=== PATIENT | female | born 1945 | race Caucasian/White ===

== ENCOUNTER 2018-05-01 05:26 | Inpatient (IN) | payer OTHER ==
[2018-04-24 13:19] LABS: HEMATOCRIT 38.1 % (37.0-47.0); HEMOGLOBIN 13.2 gm/dL (12.0-15.0); MCH 32.9 pg (26.0-34.0); MCHC 34.7 g/dL (28.0-37.0); MCV 94.8 fL (80.0-100.0); RBC 4.02 mil/uL (4.20-5.00); RDW 12.5 % (10.5-14.5); WBC 6.2 thou/uL (4.0-11.0)
[2018-04-24 13:20] LABS: URINE BILIRUBIN NEGATIVE (Negative); URINE BLOOD NEGATIVE (Negative); URINE CLARITY CLEAR; URINE COLOR YELLOW; URINE GLUCOSE-RANDOM* NEGATIVE (Negative); URINE KETONES NEGATIVE (Negative); URINE LEUKOCYTES-REFLEX NEGATIVE (Negative); URINE NITRITE-REFLEX NEGATIVE (Negative); URINE PROTEIN (DIPSTICK) NEGATIVE (Negative); URINE UROBILINOGEN 0.2 E.U./dl (0.2-1.0)
[2018-04-24 13:33] LABS: PROTIME 10.3 Seconds (9.3-11.4)
[2018-04-24 13:36] LABS: CALCIUM 9.3 mg/dL (8.5-10.1); CREATININE 1.1 mg/dL (0.6-1.0); POTASSIUM 4.3 mmol/L (3.5-5.1)
[~2018-05-01] VITALS: Ht 165.1 cm; Wt 72.6 kg
--- NOTE | ~2018-05-01 | O ---
[facility] [place] [address] OPERATIVE REPORT Name: MARGARITO OKEEFE Room #: 459-P [facility] IN M.R.#: [id number] Admission: 05/01/18 Attend Phys: Claude Epstein Discharge: 05/02/18 Date of : 47 Report #: [id number] THIS REPORT FOR: //name// CC: Claude Mcdonough DATE OF SERVICE: 05/01/2018 PREOPERATIVE DIAGNOSES: 1. Right shoulder pain, rotator cuff tear arthropathy. 2. Right knee pain and osteoarthritis. POSTOPERATIVE DIAGNOSES: 1. Right shoulder pain, rotator cuff tear arthropathy. 2. Right knee pain and osteoarthritis. PROCEDURE PERFORMED: 1. Right reverse total shoulder arthroplasty with open biceps tenodesis. 2. Right knee intraarticular cortisone injection. SURGEON: Claude Berg MD. SECURITY MESSENGER: Brittany Mitchell PA-C. ANESTHESIA: General with preoperative ultrasound-guided interscalene block with indwelling catheter. FLUIDS: 1200 mL crystalloid. ESTIMATED BLOOD LOSS: Approximately 50 mL. IMPLANTS UTILIZED: 1. [employer] Xtend reverse shoulder arthroplasty, size 10 hydroxyapatite coated cementless stem with a size 1 epiphysis, 38-mm eccentric glenosphere on a standard metaglene. 2. [facility] cable. DESCRIPTION OF PROCEDURE: After proper identification of the patient and operative site in preoperative holding area, the operative site was signed by myself. Prophylactic antibiotics given. The patient elected to receive an indwelling interscalene block catheter after reviewing the risks, benefits, alternatives and potential complications with anesthesia. After a satisfactory block, the patient was brought back to the operative suite. She was positioned on the operative table. After induction of general anesthetic, she was carefully positioned in the beach chair with head of bed elevated approximately 45 degrees. With the patient's cervical spinal surgery, great care was taken [address] [address] OPERATIVE REPORT Name: MARGARITO OKEEFE Room #: 459-P [facility] M.Marcellus.#: [id number] Admission: 05/01/18 Attend Phys: Claude Epstein Discharge: 05/02/18 Date of : 47 Report #: [id number] during positioning to keep her neck in a neutral alignment. At this point, the right shoulder was sterilely prepped and draped in usual manner. Final skin draping was with Ioban. A [employer]et limb positioning system was utilized. Anterior deltopectoral approach was planned. Skin was incised sharply. Full thickness skin flaps were developed. Deltopectoral interval and cephalic vein were identified. Cephalic vein was retracted laterally. Subdeltoid adhesions were noted. These were carefully released and were thick and prominent with her previous surgeries. After the subdeltoid space had carefully been opened, a Cavazos deltoid retractor was used to retract the soft tissues. At this point, the bicipital groove and lesser tuberosity were identified. Groove was opened laterally. Proximal biceps tendon was noted and it was tenodesed to the undersurface of the pectoralis. There was a history of a reported biceps tenodesis, but I saw no obvious fixation in the area of the lesser tuberosity and distal. At this point, subscapularis was peeled off the lesser tuberosity. The supraspinatus was deficient. Portion of the infraspinatus and teres minor were still present. Degenerative changes were noted on both sides of the joint and the humeral head was exposed. The patient had about 50 degrees of retroversion while referencing the forearm. A humeral head was carefully flattened with an oscillating saw and hand reamers were used to gain access to the canal. This was reamed up to a size 10, which matched the preoperative templating. Cutting guide was provisionally secured and its position was verified. Humeral cut was performed in slightly less anteversion in her [place] 50. The patient was osteoporotic. Peripheral osteophytes around the humeral head were carefully removed and at this point, attention was divided to the glenoid portion of the procedure with the humerus being protected with a protection plate. Joint was distracted. Anterior capsule and labrum were carefully released. The inferior capsule was released off the labral capsular junction and glenoid with great care taken to identify and protect the axillary nerve. The labrum was released circumferentially. Glenoid was exposed. Degenerative changes were noted on the glenoid side as well. The metaglene guide for the guidepin was placed along the more inferior aspect of the glenoid. Guidepin was inserted, its position was verified as well as its trajectory. Glenoid face was reamed. Jose Cruz reamer was utilized to any remaining soft tissue or bony prominence that was carefully removed with a rongeur. At this point, step drill was utilized and the standard metaglene was carefully impacted into position and had good fixation with purely post portion only of the implant. The anterior and inferior locking screws were placed and these measured 36 and 30 mm. Then, nonlocking screws were used in the anterior and posterior directions 24 anterior, 18 posterior. These all had good purchase. They were sequentially tightened, then the locking screws were locked. This was thoroughly irrigated with normal saline and a 38-mm eccentric glenosphere was applied over a long wire. The tightening screw was externally rotated until an audible click was noted and the glenosphere was felt to be seated a little further. This was then tightened by hand, impacted and tightened a total of 3 more times until it was fully seated. The rotation of the eccentricity was [facility] [address] [place] [address] OPERATIVE REPORT Name: MARGARITO OKEEFE Room #: 459-P [facility] M.R.#: [id number] Admission: 05/01/18 Attend Phys: Claude Epstein Discharge: 05/02/18 Date of : 47 Report #: [id number] carefully marked and positioned inferiorly. At this point with the trial implants, it was noted that there was a small split in the anterior aspect of the humerus during insertion of the trial implant. This was removed and thoroughly irrigated with normal saline. The [employer]-M[employer] cable was carefully passed. Care was taken to not incorporate any soft tissues. This was then mildly tightened and the final implant was prepared on the back table and impacted into position and after it was seated, then the cable was tightened further. No further extension of the anterior humerus was noted. Joint was stable with the +6 polyethylene liner, which was the one which after the trialing was implanted and pistoning in the arm was noted. There was good tension within the soft tissues as well as external rotation of 45 degrees and she easily internally rotated to the abdomen. Wound was thoroughly irrigated with normal saline. Deltopectoral interval was closed with 0 Vicryl. One gram of vancomycin powder was placed within the deep tissues and a portion of it in the more superficial closure and 2-0 Vicryl followed by a running 4-0 Monocryl was utilized for closure. Sterile dressing was applied as well as the sling and abduction pillow. She was awakened and transferred to the recovery room in stable condition. The patient will utilize a sling for 4 weeks postoperatively. Next, the right knee was sterilely prepped and injected with 40 mg of Depo-Medrol and 3 mL of 1% lidocaine. Qualified development assistant utilized throughout the entire procedure to aid in patient limb positioning, visualization and retraction of soft tissues, instrument passage closure and dressing application. <ELECTRONICALLY SIGNED> By: Claude Berg MD 05/03/18 [id number] [id number] Claude Berg MD /nt
[~2018-05-01 05:26] MED LIST: ALEVE220 MG PO; CHEWABLE-VITE1 EAC1 PO; COREG6.25 MG PO; HYDROCODON-ACE1 EAC5 PO; LASIX 20 MG TAB20 MG PO; LISINOPRIL-HCT1 EAC2 PO; OMEPRAZOLE 20 M20 M1 PO; PAXIL 20 MG TAB20 M1; VALIUM5 MG PO; VENTOLIN HFA 1818 GM INH
[2018-05-01 11:44] VITALS: BP 154/76
[2018-05-01 16:24] VITALS: BP 102/56
[2018-05-01 20:39] VITALS: BP 105/55
[2018-05-02 04:54] VITALS: BP 101/58
[2018-05-02 06:24] LABS: HEMATOCRIT 31.4 % (37.0-47.0); HEMOGLOBIN 11.1 gm/dL (12.0-15.0)
[2018-05-02 06:37] LABS: POTASSIUM 3.8 mmol/L (3.5-5.1)
[2018-05-02 08:00] VITALS: BP 151/72
[2018-05-02 15:12] VITALS: BP 132/59
[2018-05-02 18:48] VITALS: BP 132/59
== END 2018-05-02 19:03 | disposition home or self-care (01) | DRG 483 ==
LOC: TBA 05:26 → 4W 05:26 → PRE 05:43 → 4W 15:47
PROVIDERS: Orthopaedic Surgery Sports Medicine; Physician Assistant Surgical
PROC: 0LS30ZZ Reposition Right Upper Arm Tendon, Open Approach (ICD-10-PCS; principal; 2018-05-01)
PROC: 0RRJ00Z Replacement of Right Shoulder Joint with Reverse Ball and Socket Synthetic Substitute, Open Approach (ICD-10-PCS; principal; 2018-05-01)
PROC: 3E023BZ Introduction of Anesthetic Agent into Muscle, Percutaneous Approach (ICD-10-PCS; principal; 2018-05-01)
PROC: 3E0233Z Introduction of Anti-inflammatory into Muscle, Percutaneous Approach (ICD-10-PCS; principal; 2018-05-01)
DX: M19.011 Primary osteoarthritis, right shoulder (principal); M17.11 Unilateral primary osteoarthritis, right knee; I10 Essential (primary) hypertension; E78.5 Hyperlipidemia, unspecified; F32.9 Major depressive disorder, single episode, unspecified; F41.9 Anxiety disorder, unspecified; Z96.1 Presence of intraocular lens; J45.909 Unspecified asthma, uncomplicated; K21.9 Gastro-esophageal reflux disease without esophagitis; Z98.42 Cataract extraction status, left eye; Z98.41 Cataract extraction status, right eye; Z88.8 Allergy status to other drugs, medicaments and biological substances; Z79.899 Other long term (current) drug therapy
CPT/HCPCS: 10047; 50010; 50101; 50172; 50386; 50417; 50697; 50733; 50935; 51771; 51930; 52138; 53000; 53078; 54118; 56524; 56525; 56526; 56530; 56531; 57095; 57103; 62110; 62900; 64042; 64043; 70005